=== PATIENT | female | born 2000 | race Hispanic/Latino ===

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

== ENCOUNTER 2022-02-13 11:55 | Outpatient (CLI) | payer MEDICAID ==
[2022-02-13 15:09] VITALS: BP 120/59
--- NOTE | 2022-02-13 16:04 | Ultrasound Report ---
US OB BPP wo non-stress, US OB limited INDICATION: well being. TECHNIQUE: Transabdominal. COMPARISON: None available. FINDINGS: There is a single intrauterine . Heart Rate: 137 beats per minute. Position: breech. Amniotic Fluid Volume: increased Amniotic Fluid Index (GARY) in cm (if calculated): 24.1. Placenta is posterior fundal and appears within normal limits. Biophysical Profile: breathing movements: 0 movements:2 posture and tone:2 Qualitative amniotic fluid volume: 2 IMPRESSION: 1. Biophysical profile is 6 of 8. No breathing movements identified. 2. Amniotic fluid index is 24.1, upper limits of normal. Signer Name: Vidal Craig MD Signed: 02/13/2022 3:59 PM Workstation Name: [id number]
== END 2022-02-13 15:49 | disposition home or self-care (01) ==
LOC: TRG 11:55 → APU 11:57 → TRG 15:49
PROVIDERS: ATTEND Obstetrics & Gynecology
DX: O36.8130 Decreased fetal movements, third trimester, not applicable or unspecified (principal); Z3A.34 34 weeks gestation of pregnancy
CPT/HCPCS: 76815; 76819

== ENCOUNTER 2022-03-19 19:02 | Inpatient (IN) | payer MEDICAID ==
--- NOTE | 2022-03-19 23:36 | Ultrasound Report ---
ULTRASOUND OBSTETRIC LIMITED ULTRASOUND BIOPHYSICAL PROFILE INDICATION / CLINICAL INFORMATION: Decreased movement. Clinical Gestational Age (GA) in weeks, days: 39, 4 TECHNIQUE: Transabdominal. COMPARISON: 02/13/2022 FINDINGS: BREATHING MOVEMENT = 2 GROSS BODY MOVEMENT = 2 TONE = 2 QUALITATIVE AMNIOTIC FLUID VOLUME = 2 TOTAL BIOPHYSICAL SCORE = 8/8 HEART RATE (beats per minute): 135 Biparietal Diameter = 9.3 cm = 37, 6 weeks, days Head Circumference = 34.2 cm = 39, 3 weeks, days Abdominal Circumference = 36.1 cm = 40, 0 weeks, days Femur Length = 7.1 cm = 36, 4 weeks, days Average Ultrasound Age (AUA) = 38, 3 weeks, days Estimated Weight in grams (if calculated): 3650 Estimated Weight Growth Percentile (if calculated): 59 AMNIOTIC FLUID INDEX (cm) = 19.4 (normal = 7-24 cm) PRESENTATION: Cephalic. ADDITIONAL FINDINGS: None. IMPRESSION: 1. Biophysical Score = 8/8 . No significant abnormality. Signer Name: Jaciel Becerra DO Signed: 03/19/2022 11:31 PM Workstation Name: [id number]
[2022-03-20] MEDS ORDERED: CARBOPROST TROMETHAMINE 250 MCG/1 ML INJ IM PRN (00:05)
[2022-03-20] MEDS ORDERED: METHYLERGONOVINE MALEATE 0.2 MG/ML VIAL IM PRN (00:05)
[2022-03-20] MEDS ORDERED: ACETAMINOPHEN 325 MG TAB PO PRN (00:05)
[2022-03-20] MEDS ORDERED: BUTORPHANOL 2 MG/1 ML INJ IV PRN (00:05)
[2022-03-20] MEDS ORDERED: fentaNYL 100 MCG/2 ML INJ IV PRN (00:05)
[2022-03-20] MEDS ORDERED: ePHEDrine SULFATE 50 MG/1 ML INJ IV PRN ×2 (00:05→01:43)
--- NOTE | 2022-03-20 00:05 | History and Physical Report ---
History of Present Illness Date of examination: 03/19/22 Date of admission: 03/20/2020 Chief complaint: Decreased movement History of present illness: The patient is a 21-year-old at 39-4/7 weeks gestation who presents to OB triage reporting decreased movement. There is no vaginal bleeding or leaking of fluid. There are irregular contractions. This patient's is complicated by polyhydramnios. She had a normal 1 hour glucose tolerance test. She sees maternal- medicine for this. Allegedly, she had an elective repeat delivery scheduled today at [facility]. However, she missed this secondary to obligations at court. In OB triage, nonstress test was reactive. Biophysical profile was 8 out of 8. The patient reported continued decreased movement. The patient was offered induction of labor and a trial of labor after (TOLAC) to decrease the risk of stillbirth at this gestational age. The patient was counseled regarding the risk of uterine rupture being less than 2%. She voiced understanding of this as well as the risk of infection, bleeding, emergent delivery, and damage to bowel/bladder and/or surrounding organs. She wished to proceed with this plan. As such, the patient was admitted to labor and delivery for induction of labor secondary to decreased movement with idiopathic polyhydramnios. Past History Past Medical History: other (Bipolar disorder) Past Surgical History: cholecystectomy, section ( delivery x2. The first delivery was allegedly an emergency procedure secondary to heart rate abnormality. The second delivery was an elective repeat.) Family/Genetic History: none Social history: no significant social history - Obstetrical History Expected Date of Delivery: 03/22/22 Actual Gestation: 39 Week(s) 5 Day(s) : 5 Para: 2 Hx # Term Pregnancies: 2 Spontaneous Abortions: 2 Medications and Allergies Allergies Allergy/AdvReac Type Severity Reaction Status Date / Time latex Allergy Mild Rash Verified 02/13/22 13:14 sulfamethoxazole Allergy Rash Verified 02/13/22 13:14 [From Bactrim] trimethoprim [From Bactrim] Allergy Rash Verified 02/13/22 13:14 Home Medications Medication Instructions Recorded Confirmed Last Taken Type Ferrous Sulfate [Feosol 325 MG tab] 325 mg PO BID #60 tablet 12/11/18 Unknown Rx Ibuprofen [Motrin 800 MG tab] 800 mg PO Q6H PRN #30 tablet 12/11/18 Unknown Rx oxyCODONE /ACETAMINOPHEN [Percocet 1 - 2 tab PO Q4H PRN #25 tablet 12/11/18 Unknown Rx 5/325 mg] Review of Systems All systems: negative - Vital Signs Vital signs: Vital Signs Pulse BP 101 H 125/76 03/19/22 19:44 03/19/22 19:44 Temp Pulse Resp BP Pulse Ox 95 H 125/76 97 03/19/22 21:46 03/19/22 19:44 03/19/22 21:46 - Physical Exam Breasts: Positive: normal Cardiovascular: Regular rate Lungs: Positive: Normal air movement Abdomen: Positive: normal appearance Genitourinary (Female): Positive: normal external genitalia, normal perenium Vulva: both: normal Vagina: Positive: normal moisture Uterus: Positive: enlarged Adnexa: both: normal Anus/Rectum: Positive: normal perianal skin Extremities: Positive: normal Deep Tendon Reflex Grade: Normal +2 - Obstetrical FHR: category 1 Uterine Contraction Monitor Mode: External Cervical Dilatation: 3 Cervical Effacement Percentage: 50 station: -2 Results All other labs normal. Ultrasound: report reviewed Assessment and Plan - Patient Problems (1) 39 weeks gestation of Current Visit: Yes Status: Acute Plan to address problem: care is up to date at [facility]. The patient had a normal 1 hour glucose tolerance test. She is GBS negative. (2) Polyhydramnios affecting in third trimester Current Visit: Yes Status: Acute Plan to address problem: The patient sees maternal- medicine. She has non-anomalous idiopathic polyhydramnios. 1 hour glucose tolerance test was normal. Maternal- medicine recommended delivery at 39 weeks gestation. (3) Decreased movement during in third trimester, antepartum Current Visit: Yes Status: Acute Plan to address problem: In OB triage, nonstress test was reactive. Biophysical profile was 8 out of 8. The patient reported continued decreased movement. The patient was offered induction of labor and a trial of labor after (TOLAC) to decrease the risk of stillbirth at this gestational age. (4) Encounter for trial of labor Current Visit: Yes Status: Acute Plan to address problem: The patient was counseled regarding the risk of uterine rupture being less than 2%. She voiced understanding of this as well as the risk of infection, bleeding, emergent delivery, and damage to bowel/bladder and/or surrounding organs. She wished to proceed with this plan. (5) Encounter for induction of labor Current Visit: Yes Status: Acute Plan to address problem: Ripen cervix with Cook's catheter. Thereafter, artificially rupture membranes and start Pitocin as needed.
[2022-03-20] MEDS ORDERED: OXYTOCIN DRIP 30 UNITS/500 ML BAG IV SCH (01:00)
[2022-03-20 01:02] LABS: Hematocrit 28.6 % (30.3-42.9); Hemoglobin 9.4 gm/dl (10.1-14.3); Mean Corpuscular HGB Conc 33 % (30-34); Mean Corpuscular Volume 76 fl (79-97); Platelet Count 238 K/mm3 (140-440); Red Blood Count 3.77 M/mm3 (3.65-5.03); Red Cell Distribution Width 15.5 % (13.2-15.2)
[2022-03-20] MEDS ORDERED: NALOXONE 2 MG/2 ML INJ IV PRN (01:43)
--- NOTE | 2022-03-20 01:43 | Anesthesia Consultation ---
Anesthesia Consult and Med Hx Date of service: 03/20/22 - Airway Anesthetic Teeth Evaluation: Good ROM Head & Neck: Adequate Mental/Hyoid Distance: Adequate Mallampati Class: Class II Intubation Access Assessment: Probably Good - Pulmonary Exam CTA: Yes - Cardiac Exam Cardiac Exam: RRR - Pre-Operative Health Status ASA Pre-Surgery Classification: ASA3 Proposed Anesthetic Plan: Epidural - Pulmonary Hx Smoking: No Hx Asthma: No COPD: No Hx Pneumonia: No - Cardiovascular System Hx Hypertension: No - Central Nervous System Hx Neuromuscular Disorder: No Hx Seizures: No Hx Psychiatric Problems: No - Endocrine Hx Renal Disease: No Hx End Stage Renal Disease: No Hx Hypothyroidism: No Hx Hyperthyroidism: No - Hematic Hx Anemia: Yes Hx Sickle Cell Disease: No - Other Systems Hx Alcohol Use: No Hx Obesity: Yes - Additional Comments Anesthesia Medical History Comments: tolac
[2022-03-20] MEDS ORDERED: fentaNYL-BUPIV 2 MCG/ML-0.125% 200 MCG/100 ML BAG EPIDURAL SCH (02:00)
[2022-03-20] MEDS: LACTATED RINGERS 1,000 ML IV SCH ×2 (03:07→14:45)
--- NOTE | 2022-03-20 03:15 | Progress Note ---
Labor Epidural - Labor Epidural Start Time: 03:03 Stop Time: 03:08 Performed by:: MCKENZIE AGUIRRE Procedure: Patient is requesting epidural for labor pain. H&P, and labs reviewed. Procedure explained, questions answered, consent obtained. Patient in sitting position with blood pressure cuff and pulse ox on and working. Timeout performed immediately before start of procedure. Sterile Chloraprep prep/drape. Lidocaine skin wheal at L[3]-L[4]. 17-gauge tuohy epidural needle advanced to [id number] with saline at [7] cm. 25-gauge spinal needle advanced until clear, free-flowing CSF. Intrathecal dexmedetomidine [5] mcg administered and needle removed. Epidural catheter advanced to [12] cm, negative aspiration for blood and csf, negative test dose 3 ml 1.5% lidocaine with epinephrine. Sterile sponge and tegaderm applied, followed by tape reinforcement. Patient tolerated procedure well.
--- NOTE | 2022-03-20 07:46 | Event Note ---
Date: 03/20/22 No LILLY, diplopia, RUQ pain, or scotomata. Pain is well controlled with epidural. BP= >140/90 EFM= category 1 TOCO= q 4 min SVE= 6/75%/-3. AROM'ed with clear fluid. IUPC and FSE placed. OB US Limited= SLIUP. Vertex. EFW= 3650 g (59th %-ile). GARY= 19.4 cm. Pre-eclampsia labs ordered.
[2022-03-20 09:17] LABS: Bilirubin,Urine NEG (Negative); Blood,Urine MOD (Negative); Color,Urine Yellow (Yellow); Mucus,Urine 2+ /HPF
--- NOTE | 2022-03-20 09:24 | Event Note ---
Date: 03/20/[address] Lin (clinical education manager) who has counseled patient for TOLAC. Pt's last child delivered via c/section 15months ago. Pelvic exam 6cm most likely from mechanical dilation and currently with epidural. records dated 03/13/22 from [facility] shows M recommends repeat c/section at 39wks. After being counseled by the clinical education manager team pt is ok continuing present mgt. Pt counseled by me that no augmentation will be given. FHR category I at this time with blood tinged fluid and Ctx irreg, inadequate with IUPC and FSE to remain. Will closely monitor with expectant mgt for now. GBS neg.
[2022-03-20] MEDS ORDERED: miSOPROStol 200 MCG TAB ONE (09:33)
[2022-03-20] MEDS ORDERED: CARBOPROST TROMETHAMINE 250 MCG/1 ML INJ IM ONE (09:34)
[2022-03-20] MEDS ORDERED: LIDOCAINE (2%) 20 MG/1 ML VIAL 20 ML MDV INFILTRATI ONE (09:53)
[2022-03-20 10:38] LABS: Amphetamine Screen,Urine Negative; Benzodiazepines Screen,Urine Negative; Cannabinoid Screen,Urine Negative; Cocaine Screen,Urine Negative; Methadone Screen,Urine Negative; Opiate Screen,Urine Negative
[2022-03-20] MEDS ORDERED: LIDOCAINE MPF (2%) 20 MG/1 ML VIAL 5 ML ONE (10:46)
[2022-03-20] MEDS ORDERED: miSOPROStol 200 MCG TAB PR SCH (11:31)
--- NOTE | 2022-03-20 12:03 | Procedure Note ---
OB Delivery Note - Delivery Date of Delivery: 03/20/22 Surgeon: RUY FLOR Estimated blood loss: other - Vaginal Delivery presentation: vertex Delivery position: OP Intrapartum events: hemorrhage, other(please specify) Delivery induction: other (goldsmith's balloon) Delivery augmentation: rupture of membranes Delivery monitor: external FHT, external uterine, internal FHT, internal uterine Route of delivery: Delivery placenta: spontaneous Episiotomy: none Delivery laceration: 1st degree (bilateral labia), 2nd degree (perineal laceration), vaginal side wall (left sulcus laceration with expanding hematoma) Delivery repair: vicryl, chromic Anesthesia: epidural Delivery comments: Nurse called me stating pt complete and same confirmed with fetus at +1 station. Successful of viable female infant, O-P presentation noted after sabianist, attempt to delivery posterior left arm unsuccessful and as mom pushed, infant rotated counterclockwise and body followed without difficulty. Spontaneous delivery of intact placenta with 3vessel cord. Anesthesia staff Kd called for additional epidural dosing and mobile lights used by circulating staff. Right angle placed anteriorly and held by surgical nurse and large expanding hematoma seen. Using 0-vicryl suture, a figure of 8 placed and hemostasis achieved. The remaining left sulcus laceration closed using 3-0 vicryl running locked suture all the way to the introitus with excellent hemostasis. The remainder of the laceration closed with interrupted 3-0 vicryl suture and the skin closed above with 3-0 chromic suture in a subcutaneous fashion with excellent hemostasis. - Infant A at 1 minute: 8 at 5 minutes: 9 Gender: Female (wt 3870g; blood tinged fluid)
[2022-03-20 13:32] LABS: Alanine Aminotransferase 8 units/L (7-56); Albumin 3.1 g/dL (3.9-5); Blood Urea Nitrogen 6 mg/dL (7-17); Calcium 8.3 mg/dL (8.4-10.2); Hemolysis Index 2; Uric Acid 3.8 mg/dL (3.5-7.6)
[2022-03-20 13:37] LABS: BUN/Creatinine Ratio 12
[2022-03-20 14:17] LABS: Creatinine,Urine 185.6 mg/dL (0.1-20.0)
[2022-03-20] MEDS ORDERED: LANOLIN/ZINC/DIMETHICONE (LANSINOH) 7 GM TP PRN (15:00)
[2022-03-20] MEDS ORDERED: PROMETHAZINE 25 MG TAB PO PRN (15:00)
[2022-03-20] MEDS ORDERED: diphenhydrAMINE 25 MG CAP PO PRN (15:00)
[2022-03-20] MEDS ORDERED: PROMETHAZINE 25 MG RECT SUPP PR PRN (15:00)
[2022-03-20] MEDS ORDERED: WITCH HAZEL/ GLYCERIN PAD TP PRN (15:00)
[2022-03-20] MEDS ORDERED: ONDANSETRON 4 MG/2 ML INJ IV PRN (15:00)
[2022-03-20 16:00] LABS: Basophils # (Auto) 0.1 K/mm3 (0.0-0.1); Basophils % (Auto) 0.6 % (0.0-1.8); Hematocrit 30.4 % (30.3-42.9); Hemoglobin 9.5 gm/dl (10.1-14.3); Lymphocytes # (Auto) 1.5 K/mm3 (1.2-5.4); Lymphocytes % (Auto) 9.1 % (13.4-35.0); Mean Corpuscular HGB Conc 31 % (30-34); Mean Corpuscular Volume 78 fl (79-97); Monocytes # (Auto) 0.9 K/mm3 (0.0-0.8); Monocytes % (Auto) 5.5 % (0.0-7.3); Platelet Count 213 K/mm3 (140-440); Red Blood Count 3.89 M/mm3 (3.65-5.03); Red Cell Distribution Width 15.4 % (13.2-15.2)
[2022-03-20] MEDS ORDERED: IBUPROFEN 600 MG TAB PO SCH (16:00)
[2022-03-20] MEDS: ACETAMINOPHEN 325 MG TAB PO PRN (17:51)
[2022-03-20] MEDS: oxyCODONE /ACETAMINOPHEN 5-325MG TAB PO PRN (21:40)
[2022-03-20] MEDS: DOCUSATE SODIUM 100 MG CAP PO SCH (21:40)
[2022-03-20] MEDS ORDERED: MAGNESIUM HYDROXIDE (MOM) ORAL LIQD UDC PO PRN (22:00)
[2022-03-21] MEDS: ACETAMINOPHEN 325 MG TAB PO PRN (04:35)
[2022-03-21 06:24] LABS: Basophils # (Auto) 0.1 K/mm3 (0.0-0.1); Basophils % (Auto) 0.8 % (0.0-1.8); Eosinophils % (Auto) 0.4 % (0.0-4.3); Hemoglobin 7.7 gm/dl (10.1-14.3); Lymphocytes # (Auto) 2.1 K/mm3 (1.2-5.4); Lymphocytes % (Auto) 15.7 % (13.4-35.0); Mean Corpuscular HGB Conc 32 % (30-34); Mean Corpuscular Volume 76 fl (79-97); Monocytes # (Auto) 0.9 K/mm3 (0.0-0.8); Monocytes % (Auto) 6.9 % (0.0-7.3); Platelet Count 196 K/mm3 (140-440); Red Blood Count 3.17 M/mm3 (3.65-5.03); Red Cell Distribution Width 15.3 % (13.2-15.2)
[2022-03-21] MEDS ORDERED: SERTRALINE 50 MG TAB PO SCH (10:00)
[2022-03-21] MEDS ORDERED: PRENATAL VIT27-FE FUMARATE-FOLIC ACID VIT TAB PO SCH (10:00)
--- NOTE | 2022-03-21 10:09 | Post Anesthesia Evaluation ---
- Post Anesthesia Evaluation Patient Participated: Yes Airway Patent: Yes Stable Respiratory Function: Yes Nausea/Vomiting: No Temp > 96.8F: Yes Pain Manageable: Yes Adequeate Hydration: Yes Anesthesia Complications: No Block Receding Appropriately: Yes
[2022-03-21] MEDS: oxyCODONE /ACETAMINOPHEN 5-325MG TAB PO PRN (10:15)
[2022-03-21] MEDS: DOCUSATE SODIUM 100 MG CAP PO SCH (10:16)
[2022-03-21] MEDS ORDERED: IRON DEXTRAN COMPLEX 100 MG/2 ML INJ IM SCH (11:30)
[2022-03-21] MEDS ORDERED: medroxyPROGESTERone ACETATE 150 MG/ML SYRINGE IM SCH (12:00)
--- NOTE | 2022-03-21 12:09 | Progress Note ---
Assessment and Plan A: PP Day #1 Asymptomatic Anemia RH Negative P: Follow Routine Orders Infed 100mg IM x 1 dose Depo Provera 150mg IM prior to discharge Declines Rhogam injection because she states it hurts and she is not having any more children (plans sterilization) D/C home today per patient request RTO in 6 Weeks Subjective - Subjective Date of service: 03/21/22 Patient reports: appetite normal, voiding normally, pain well controlled, flatus, bowel movement, ambulating normally, other (Denies light-headness, dizziness, and fatigue) [place]: doing well, bottle feeding Objective - Vital Signs Latest vital signs: Vital Signs Temp Pulse Resp BP BP Pulse Ox Pulse Ox 03/21/22 09:40 98 03/21/22 08:15 97.8 F 76 20 94/55 99 03/21/22 00:16 97.8 F 77 18 103/58 100 03/20/22 20:00 100 03/20/22 19:54 97.9 F 78 18 107/51 100 03/20/22 16:18 99.0 F 89 20 116/56 97 03/20/22 14:32 100 03/20/22 14:05 97.7 F 87 14 115/39 100 03/20/22 13:40 85 109/72 03/20/22 13:39 92 H 100 03/20/22 13:35 75 91 03/20/22 13:34 83 100 03/20/22 13:33 93 H 106/71 03/20/22 13:32 97.7 F 03/20/22 13:29 89 100 03/20/22 13:27 83 81 L 03/20/22 13:24 69 100 03/20/22 13:19 57 L 100 03/20/22 13:18 70 106/75 03/20/22 13:14 61 100 03/20/22 13:09 55 L 100 03/20/22 13:04 61 100 03/20/22 13:03 62 104/65 03/20/22 12:59 58 L 100 03/20/22 12:54 61 100 03/20/22 12:49 58 L 100 03/20/22 12:48 56 L 106/62 03/20/22 12:44 57 L 100 03/20/22 12:39 62 99 03/20/22 12:34 64 102/58 98 05/10/22 12:29 65 99 03/20/22 12:24 62 99 03/20/22 12:19 67 106/61 99 03/20/22 12:14 73 98 03/20/22 12:09 76 98 Intake and Output 03/20/22 03/21/22 03/21/22 22:59 06:59 14:59 Intake Total 540 500 560 Output Total 950 Balance -410 500 560 Intake: Oral 240 200 560 Intake, Free Water 300 300 Output: Urine 950 Void 950 Other: Total, Intake Amount 240 200 240 Total, Output Amount 500 # Voids Void 1 1 1 - Exam Breasts: Present: normal Cardiovascular: Present: Regular rate Lungs: Present: Clear to auscultation, Normal air movement Abdomen: Present: normal appearance, soft, normal bowel sounds Vulva: both: normal, laceration/episiotomy (sutures intact; no hemotoma palpated in the left sulcus) Uterus: Present: normal, firm, fundal height below umbilicus Extremities: Present: normal - Labs Labs: Abnormal lab results 03/20/22 03/20/22 03/20/22 Range/Units 08:26 12:40 14:24 WBC 16.9 H (4.5-11.0) K/mm3 RBC (3.65-5.03) M/mm3 Hgb 9.5 L (10.1-14.3) gm/dl Hct (30.3-42.9) % MCV 78 L (79-97) fl MCH 24 L (28-32) pg RDW 15.4 H (13.2-15.2) % Lymph % (Auto) 9.1 L (13.4-35.0) % [place] # (Auto) 0.9 H (0.0-0.8) K/mm3 Seg Neutrophils % 84.8 H (40.0-70.0) % Seg Neutrophils # 14.3 H (1.8-7.7) K/mm3 Sodium 135 L (137-145) mmol/L BUN 6 L (7-17) mg/dL Creatinine 0.5 L (0.6-1.2) mg/dL Calcium 8.3 L (8.4-10.2) mg/dL Lactate Dehydrogenase 243 H (91-180) units/L Total Protein 5.4 L (6.3-8.2) g/dL Albumin 3.1 L (3.9-5) g/dL Urine Creatinine 185.6 H (0.1-20.0) mg/dL Urine Total Protein 54 H (5-11.8) mg/dL 03/21/22 Range/Units 05:23 WBC 13.2 H (4.5-11.0) K/mm3 RBC 3.17 L (3.65-5.03) M/mm3 Hgb 7.7 L (10.1-14.3) gm/dl Hct 24.0 L D (30.3-42.9) % MCV 76 L (79-97) fl MCH 24 L (28-32) pg RDW 15.3 H (13.2-15.2) % Lymph % (Auto) (13.4-35.0) % [place] # (Auto) 0.9 H (0.0-0.8) K/mm3 Seg Neutrophils % 76.2 H (40.0-70.0) % Seg Neutrophils # 10.0 H (1.8-7.7) K/mm3 Sodium (137-145) mmol/L BUN (7-17) mg/dL Creatinine (0.6-1.2) mg/dL Calcium (8.4-10.2) mg/dL Lactate Dehydrogenase (91-180) units/L Total Protein (6.3-8.2) g/dL Albumin (3.9-5) g/dL Urine Creatinine (0.1-20.0) mg/dL Urine Total Protein (5-11.8) mg/dL
--- NOTE | 2022-03-21 12:11 | Discharge Summary ---
Providers - Providers Date of Admission: 03/20/22 00:05 Date of discharge: 03/21/22 Attending physician: RUY FLOR Primary care physician: RUY FLOR Hospitalization Reason for admission: other (decreased movement) Delivery: Episiotomy: none Laceration: 1st degree, 2nd degree Other procedures: none complications: none Discharge diagnosis: IUP at term delivered [place] baby: female Condition at discharge: Good Disposition: 01 HOME / SELF CARE / HOMELESS Plan - Provider Discharge Summary Activity: routine, no sex for 6 weeks, no heavy lifting 4 weeks, no strenuous exercise Diet: routine Instructions: routine Additional instructions: [] Smoking cessation referral if applicable(refer to patient education folder for contact #) [] Refer to [facility] Book[facility] Call your doctor immediately for: * Fever > 100.5 * Heavy vaginal bleeding ( >1 pad per hour) * Severe persistent headache * Shortness of breath * Reddened, hot, painful area to leg or breast * Drainage or odor from incision. * Keep incision clean and dry at all times and follow doctor's instructions regarding bathing/showering - Follow up plan Follow up: RUY FLOR MD [Primary Care Provider] - 6 Weeks
[2022-03-21 13:22] VITALS: BP 114/75
== END 2022-03-21 15:25 | disposition home or self-care (01) | DRG 774 ==
LOC: TRG 19:02 → APU 19:06 → TRG 03-20 00:05 → LD 03-20 00:05 → OB 03-20 14:03
PROVIDERS: ADMIT Obstetrics & Gynecology; ATTEND Obstetrics & Gynecology
PROC: 10E0XZZ Delivery of Products of Conception, External Approach (ICD-10-PCS; principal; 2022-03-20)
PROC: 0KQM0ZZ Repair Perineum Muscle, Open Approach (ICD-10-PCS; 2022-03-20)
PROC: 10907ZC Drainage of Amniotic Fluid, Therapeutic from Products of Conception, Via Natural or Artificial Opening (ICD-10-PCS; 2022-03-20)
PROC: 3E0R3BZ Introduction of Anesthetic Agent into Spinal Canal, Percutaneous Approach (ICD-10-PCS; 2022-03-20)
PROC: 00HU33Z Insertion of Infusion Device into Spinal Canal, Percutaneous Approach (ICD-10-PCS; 2022-03-20)
PROC: 0U7C7ZZ Dilation of Cervix, Via Natural or Artificial Opening (ICD-10-PCS; 2022-03-20)
DX: O40.3XX0 Polyhydramnios, third trimester, not applicable or unspecified (principal); O72.1 Other immediate postpartum hemorrhage; O36.8130 Decreased fetal movements, third trimester, not applicable or unspecified; Z3A.39 39 weeks gestation of pregnancy; Z20.822 Contact with and (suspected) exposure to COVID-19; O70.1 Second degree perineal laceration during delivery; Z37.0 Single live birth; O90.81 Anemia of the puerperium
CPT/HCPCS: 36415; 76816; 76819; 80053; 80307; 81001; 82570; 83615; 84156; 84550; 85025; 85027; 85461; 86850; 86900; 86901; 86920; 88307; 99211; G0378; J3490; G0463; J1750; J7120; U0003